=== PATIENT | female | born 1930 | race Caucasian/White ===

== ENCOUNTER 2017-07-26 06:59 | Emergency (ER) | payer MEDICARE, OTHER ==
--- NOTE | 2017-07-26 07:42 | EDM.PDOC ---
ED HPI GENERAL MEDICAL PROBLEM - General Chief Complaint: General Stated Complaint: MEDICATION MIXUP Time Seen by Provider: 07/26/17 07:32 Source of Information: Reports: Patient, RN Notes Reviewed History Limitations: Reports: No Limitations - History of Present Illness INITIAL COMMENTS - FREE TEXT/NARRATIVE: 87-year-old female presents emergency department today with concern about blood pressure she does have a wrist cuff at home blood pressure was high 175 systolic and she is concerned she is asymptomatic - Related Data Allergies Allergy/AdvReac Type Severity Reaction Status Date / Time No Known Allergies Allergy Verified 07/26/17 07:26 Home Meds: Home Meds Calcium Carb & Citrate/Vit D3 [Calcium + Vitamin D3 Caplet] 2 cap PO DAILY 02/15 [History] Estradiol [Estrace] 2 mg PO DAILY 02/15/15 [History] Metoprolol Tartrate [Lopressor] 12.5 mg PO BID 02/15/15 [History] Omeprazole [Prilosec] 20 mg PO DAILY 02/15/15 [History] Potassium Chloride [Klor-Con 10] 20 meq PO DAILY 02/15/15 [History] Vitamin E 400 unit PO DAILY 02/15/15 [History] Aspirin [Adult Low Dose Aspirin EC] 81 mg PO DAILY 11/27/15 [History] Warfarin [Coumadin] 2.5 mg PO .[id number] 01/21/16 [History] Warfarin [Coumadin] 5 mg PO .MTWF 01/21/16 [History] Hydrocodone/Acetaminophen [Hydrocodon-Acetaminophen 5-325] 1 tab PO Q4HR PRN [History] Cholecalciferol (Vitamin D3) [Vitamin D3] 1,000 unit PO DAILY 05/28/16 [History] Bacitracin [Bacitracin Oint] 0 gm TOP BID tube 08/07/16 [Rx] Furosemide 40 mg PO DAILY #0 08/07/16 [Rx] Levofloxacin [Levaquin] 500 mg PO Q48H #4 tablet 08/07/16 [Rx] Past Medical History HEENT History: Reports: Cataract, Hard of Hearing, Impaired Vision Cardiovascular History: Reports: Blood Clots/VTE/DVT, CAD, High Cholesterol, Hypertension, MD, SOB on Exertion, Other (See Below) Other Cardiovascular History: Edema Respiratory History: Reports: Bronchitis, Recurrent, Pneumonia, Recurrent, SOB Gastrointestinal History: Reports: GERD Genitourinary History: Reports: Urinary Incontinence, UTI, Recurrent Other Genitourinary History: Bladder suspension [employer] History: Reports: Dysfunctional Uterine Bleeding, Musculoskeletal History: Reports: Arthritis, Back Pain, Chronic, Fracture, Osteoarthritis Neurological History: Reports: Neuropathy, Peripheral, Vertigo Psychiatric History: Reports: Anxiety, Panic Attack Endocrine/Metabolic History: Reports: Obesity/BMI 30+ Hematologic History: Reports: Anticoagulation Therapy Immunologic History: Reports: None Oncologic (Cancer) History: Reports: Other (See Below) Other Oncologic History: skin Dermatologic History: Reports: Venous Stasis Dermatitis, Other (See Below) Other Dermatologic History: patient currently has a wound on her right leg. - Infectious Disease History Infectious Disease History: Reports: Chicken Pox, Measles, Mumps, Pertussis ( Whooping Cough) - Past Surgical History HEENT Surgical History: Reports: Cataract Surgery GI Surgical History: Reports: Colonoscopy Female Surgical History: Reports: Breast Biopsy, D&C, Hysterectomy, Salpingo- Oophorectomy Endocrine Surgical History: Reports: None Musculoskeletal Surgical History: Reports: Arthroscopic Knee, Other (See Below) Oncologic Surgical History: Reports: Biopsy of Breast Dermatological Surgical History: Reports: None, Skin Biopsy Social & Family History - Family History Family Medical History: Noncontributory HEENT: Reports: Cataract, Glaucoma, Hearing Impairment, Impaired Vision, Macular Degeneration Cardiac: Reports: Heart Failure Respiratory: Reports: None GI: Reports: None : Reports: None OBGYN: Reports: None Musculoskeletal: Reports: None Neurological: Reports: CVA Psychiatric: Reports: None Endocrine/Metabolic: Reports: Diabetes, type II Hematologic: Reports: None Immunologic: Reports: None Dermatologic: Reports: None Oncologic: Reports: Breast, Lung - Tobacco Use Smoking Status *Q: Never Smoker Second Hand Smoke Exposure: No - Caffeine Use Caffeine Use: Reports: None - Alcohol Use Days Per Week of Alcohol Use: 1 Number of Drinks Per Day: 0 Total Drinks Per Week: 0 - Recreational Drug Use Recreational Drug Use: No - Living Situation & Occupation Living situation: Reports: Occupation: Retired ED ROS GENERAL - Review of Systems Review Of Systems: See Below Constitutional: Reports: No Symptoms Respiratory: Reports: No Symptoms Cardiovascular: Reports: No Symptoms GI/Abdominal: Reports: No Symptoms ED EXAM, GENERAL - Physical Exam Exam: See Below Exam Limited By: No Limitations General Appearance: Alert, WD/WN, No Apparent Distress Respiratory/Chest: No Respiratory Distress, Lungs Clear, Normal Breath Sounds, No Accessory Muscle Use Cardiovascular: Regular Rate, Rhythm, No Murmur Course - Vital Signs Last Recorded V/S: Last Vital Signs Temp 96.6 F 07/26/17 07:25 Pulse 88 07/26/17 07:30 Resp 16 07/26/17 07:25 BP 133/82 07/26/17 07:30 Pulse Ox 97 07/26/17 07:30 Departure - Departure Time of Disposition: 07:41 Disposition: Home, Self-Care 01 Condition: Good Clinical Impression: Blood pressure check - Discharge Information Referrals: Geremias Loza MD [Primary Care Provider] - Additional Instructions: Follow-up primary care as needed, call return to the emergency department worsening of symptoms - Assessment/Plan Plan: Assessment Acuity = acute Site and laterality = blood pressure check Etiology = probable air with wrist cuff Manifestations = none Location of injury = Home Lab values = none Plan Mainly reassurance, follow-up with primary care as needed Patient was in agreement with the plan all questions were answered, they were instructed to return to the emergency department or call for worsening symptoms. This note was dictated using [employer] voice recognition software please call with any questions.
[2017-07-26 09:07] VITALS: BP 133/82
== END 2017-07-26 07:54 | disposition home or self-care (01) ==
LOC: JP.ED 06:59
DX: Z01.30 Encounter for examination of blood pressure without abnormal findings (principal); I10 Essential (primary) hypertension; I25.10 Atherosclerotic heart disease of native coronary artery without angina pectoris; I25.2 Old myocardial infarction; E78.00 Pure hypercholesterolemia, unspecified; K21.9 Gastro-esophageal reflux disease without esophagitis; M19.90 Unspecified osteoarthritis, unspecified site; E66.9 Obesity, unspecified; F41.0 Panic disorder [episodic paroxysmal anxiety]; Z79.01 Long term (current) use of anticoagulants; Z98.49 Cataract extraction status, unspecified eye; Z90.710 Acquired absence of both cervix and uterus; Z79.82 Long term (current) use of aspirin; Z79.899 Other long term (current) drug therapy; Z86.718 Personal history of other venous thrombosis and embolism
CPT/HCPCS: 99282